=== PATIENT | female | born 1955 | race Caucasian/White ===

== ENCOUNTER 2024-04-06 08:27 | Outpatient (RCR) | payer OTHER, SELFPAY | END 2024-04-06 23:59 | disposition home or self-care (01) | LOC: RPT 08:27 | PROVIDERS: ATTENDING PHYSICIAN Family Medicine Sports Medicine; FAMILY PHYSICIAN Nurse Practitioner Family | DX: M76.32 Iliotibial band syndrome, left leg (principal); Z73.6 Limitation of activities due to disability | CPT/HCPCS: 97110; 97162 ==

== ENCOUNTER → 2024-04-22 12:21 | Outpatient (REF) | payer OTHER, SELFPAY | LOC: WDC 12:21 | PROVIDERS: ATTENDING PHYSICIAN Physician Assistant Medical; FAMILY PHYSICIAN Nurse Practitioner Family | DX: Z12.31 Encounter for screening mammogram for malignant neoplasm of breast (principal) | CPT/HCPCS: 77063; 77067 ==

== ENCOUNTER 2024-05-02 14:01 | Outpatient (RCR) | payer OTHER, SELFPAY | END 2024-05-02 23:59 | disposition home or self-care (01) | LOC: RPT 14:01 | PROVIDERS: ATTENDING PHYSICIAN Family Medicine Sports Medicine; FAMILY PHYSICIAN Nurse Practitioner Family | DX: M76.32 Iliotibial band syndrome, left leg (principal); Z73.6 Limitation of activities due to disability | CPT/HCPCS: 97110; 97140; 97530 ==

== ENCOUNTER 2024-06-09 13:09 | Outpatient (RCR) | payer OTHER, SELFPAY | END 2024-06-09 23:59 | disposition home or self-care (01) | LOC: RPT 13:09 | PROVIDERS: ATTENDING PHYSICIAN Family Medicine Sports Medicine; FAMILY PHYSICIAN Nurse Practitioner Family | DX: M76.32 Iliotibial band syndrome, left leg (principal); Z73.6 Limitation of activities due to disability; M62.81 Muscle weakness (generalized) | CPT/HCPCS: 97110; 97530 ==

== ENCOUNTER 2024-06-16 13:05 | Outpatient (RCR) | payer OTHER, SELFPAY | END 2024-06-20 06:24 | disposition home or self-care (01) | LOC: RPT 13:05 | PROVIDERS: ATTENDING PHYSICIAN Family Medicine Sports Medicine; FAMILY PHYSICIAN Nurse Practitioner Family | DX: M76.32 Iliotibial band syndrome, left leg (principal); Z73.6 Limitation of activities due to disability; M62.81 Muscle weakness (generalized) | CPT/HCPCS: 97110 ==

== ENCOUNTER → 2024-07-04 09:40 | Outpatient (REF) | payer OTHER, SELFPAY ==
--- NOTE | 2024-06-08 11:01 | PN.DIAED02 ---
Referral
DSME Class Series Code: [id number]
Referred For: Diabetes Self-Management Training, Medical Nutrition Therapy, Self-Blood Glucose Monitoring, Long-Term Complication Instruction, Accute Complication Instruction, Continuous Glucose Monitoring, Medication management, Insulin
Instruction, Care Coordination, Disease Management
PHI Release Authorization Form Signed: Yes
Patient Problems:
Current Active Problems
Problem Status Onset
Type 2 diabetes mellitus with other specified complication
Demographic
(1) Type 2 diabetes mellitus with other specified complication
Status: Acute Code(s): E11.69 - Type 2 diabetes mellitus with other specified complication
Patient's primary language-: Yi
Education: Advanced college degree
Occupation: Retired
- Social
Primary Support Person: Self
Primary Care Takers: Self
Living Arrangements: Self & spouse
- Learning Methods
Preferred Method: Reading, Hands-on demonstration
Barriers to Learning: None
Glycemic Control
- Blood Glucose Monitoring Assessment
Date: 09/10/23 (FBS: 130 mg/dL)
Blood glucose monitoring at home: Yes (freestyle marcello 2)
- Ketone Monitoring Assessment
Patient monitoring ketone: No
- Hyperglycemia Assessment
Experiences Hyperglycemia: No
- Hypoglycemia Assessment
Patient carries glucose source: Yes
Patient experiences hypoglycemia: Yes
Frequency: 1-3x per week
Treatment: juice
Time: Other (after exercise (physical therapy))
Patient has required treatment by others: No
History of Hypoglycemia Unawareness: No
- Blood Glucose Monitoring Results
Source: Other (freestyle marcello: average 120 mg to 130 mg/dL)
- Hemoglobin A1c
Date: 09/10/23
A1C Percentage (%): 7.1
Medical History of Diabetes
Family Diabetes History: Grandmother, Grandfather
Previous Diabetes Education: Yes
How long ago?: > 10 years ago
Previous visit with Dietitian: Yes (IBD)
How long ago?: 1-5 years ago
Complications/Comorbidity/Specialist: Hyperlipidemia (pravastatin daily)
Current Home Medication
- Insulin Management
Patient adjusts own insulin dosages: No (12 units TID with meals)
Patient has access to glucagon: No
- Insulin Types
Novolog
Insulin Injection Site: Abdomen, Thigh, Rotates
Administration Type: FlexPen
Measures
- Anthropometrics
Height: 5 ft 2 in
Actual Weight: 152 lb
- Blood Pressure / Pulse
Blood pressure: 135/90
Pulse: 110
- Diabetes Management
Medical Management for Diabetes: Complete physical exam (08/24/23), Dental exam (04/24/24), Dilated eye exam (01/24/24), Foot exam (10/18/22)
Self-Care
- Tobacco Usage
Do you now, or have you ever smoked?: Quit more than 1 year ago
- Alcohol & Drugs Usage
Drinks Alcohol: Yes
Amount/day: Social Occasions
- Meals & Dining
Meals & Dining: Patient skips meals: No, Food Intolerance / Allergy: Yes (IBD--high fiber vegetables, salads), Cultural / Cheondoism Dietary Needs: No
Primary Food Music Specialist: Self
- Physical Activity
Physical Limitation: No (recovering from hip injury able to restart activity)
Patient participates in physical Activity: Yes
Activity Types: walking, Other (physical therapy )
- Self Foot-Care
Foot Problems: None
- Patient-Self Assessment
Diabetes Knowledge: Good
Feelings About Diabetes: Sadness / Depression
Importance of Health: Extremely
Stress Level: Low
Diabetes Interferes With:: Sports/exercise
Barriers to Diabetes Management: Nothing
Depression Survey Score: 5
- Diabetes Identification
Carries Diabetes Identification: No (provided information to obtain Id)
Diabetes Identification Information Provided: Yes
Care Plan
- Education Needs
Patient Education Needs: Diabetes disease process, Chronic complications, Acute complications, Medication, Monitoring, Physical activity, Psychosocial Adjustment, Nutritional management, Goal setting & problem solving
Recommended Diabetes Training Program based on assessment: Outpatient Diabetes Education Program
- Plan of Care
Plan of Care:
Gayla had previously attended the [facility] DSME program in 1998. 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 She is currently on Metformin 1000 mg BID, Novolog Flexpen; 12 units TID pre meals and Mounjaro 2.5
mg. Thursday06/03/24 was her last Mounjaro dose as she cannot afford the cost of the next supply. I recommended she contact the MD office to discuss alternative options or ask for assistance. Gayla wears the Freestyle marcello 2 sensor and stated her
glucose ranges from 120 to 130 mg/dL. We discussed changing to the Freestyle 3 marcello to avoid having to scan her sensor to obtain the reading. Gayla is in physical therapy once a week for an injury to her hip. We discussed the importance of
physical activity and she is now able to increase her activity and identified it as one of her goals.
--- NOTE | 2024-06-08 11:30 | PN.DIAED04 ---
Education Record
- Education Record
Class Attended: Other (Initial DSME assessment)
DSME Class Series Code: [id number]
Instructor: Nurse Practitioner (ROGER Lang)
Pre-Program Knowledge: Needs review / Assistance
Pre-Test Score (%): 73
Goals
- Goal 1
Being Active: Exercise 30 minutes-5 times per week
Goals To Be Evaluated: Exercise 30 mins-5x/week
- Goal 2
Healthy Eating: Patient will be able to plan a meal, Make better food choices, Follow meal plan, Reduce portion sizes
Goals To Be Evaluated: Be able to plan a meal. Make better food choices. Follow meal plan. Reduce portion sizes
- Goal 3
Monitoring: Take blood sugar in the prescribed pattern (monitor for glucose trends and patterns using marcello sensor), Other
Goals To Be Evaluated: Test BG-prescribed times. Other
--- NOTE | 2024-07-06 13:01 | PN.DIAED14 ---
This is to notify you that your patient with diabetes, KAYLA JOSEPH ( 1955), has enrolled in our diabetes self-management classes that are being held at [facility].
These classes will include an introduction to diabetes, diet, medication, exercise and prevention of complications. At the end of our class series, you will receive a report of your patient's participation and progress for your records.
Please contact me at the Diabetes Center, , if there is any particular information regarding your patient that might be helpful to me.
Sincerely,
Real DURAN-,[facility]
--- NOTE | 2024-07-06 13:01 | PN.DIAED18 ---
Depression is associated with poor diabetes self-management and perceived inability to control diabetes.
After careful consideration and multiple layers of input, the [facility]'s outpatient diabetes education program has implemented a depression screening tool. The tool is the PHQ-9 Quick Depression Assessment.
Each patient who attends the outpatient diabetes education class responds to 9 questions before the first class starts. At the completion of the 5 classes, each patient again responds to the same 9 questions. In theory, after completing the program
the hope is that the patient will feel somewhat more capable of diabetes self-management.
Your patient, KAYLA JOSEPH ( 1955), scored '5' on the pre-depression screening, which indicated mild depression; Your patient did not complete the last class so we have no post-depression score.
Enclosed please find a copy of the depression screening.
If you require any additional information, please do not hesitate to contact me at [phone].
Sincerely,
Real DURAN-TRACY,[facility]
--- NOTE | 2024-07-06 13:10 | PN.DIAED04 ---
Education Record
- Education Record
Class Attended: Class 1
DSME Class Series Code: [id number]
Instructor: Nurse Practitioner (ROGER Lang)
Class Curriculum:
Outpatient Diabetes Education Program:
Class 1 (120 minutes)
Describe the diabetes disease process and treatment options
Diabetes management
Develop personal strategies to promote health and behavior change
Integrate psychosocial adjustment for daily living
Monitor blood glucose and other parameters. Interpret and use the results for self-management decision making
Prevent, detect, and treat acute complications
Class Length (mins): 120
Post-Class 1 Test Score (%): 94
== END ==
LOC: DES 09:40
PROVIDERS: ATTENDING PHYSICIAN Physician Assistant
DX: E11.69 Type 2 diabetes mellitus with other specified complication (principal)
CPT/HCPCS: 99078

== ENCOUNTER → 2024-07-11 09:06 | Outpatient (REF) | payer OTHER, SELFPAY ==
--- NOTE | 2024-07-12 15:39 | PN.DIAED04 ---
Education Record
- Education Record
Class Attended: Class 2
DSME Class Series Code: [id number]
Instructor: Registered Dietitian (Danette Cortez, RD, LDN, CDE)
Class Curriculum:
Outpatient Diabetes Education Program:
Class 2 (120 minutes)
Incorporate nutritional management into lifestyle
Understanding nutritional value
Understanding carbohydrate counting
Class Length (mins): 120
== END ==
LOC: DES 09:06
PROVIDERS: ATTENDING PHYSICIAN Physician Assistant
DX: E11.69 Type 2 diabetes mellitus with other specified complication (principal)
CPT/HCPCS: 99078

== ENCOUNTER → 2024-07-25 07:59 | Outpatient (REF) | payer OTHER, SELFPAY ==
--- NOTE | 2024-07-26 08:28 | PN.DIAED04 ---
Education Record
- Education Record
Class Attended: Class 4
DSME Class Series Code: [id number]
Instructor: Nurse Practitioner (ROGER Lang)
Class Curriculum:
Outpatient Diabetes Education Program:
Class 4 (120 minutes)
Develop personal strategies to promote health and behavior change
Incorporate physical activity into lifestyle
Utilize medications safety for maximum therapeutic effectiveness
Understand different medication/insulin mechanism of action
Preparing for travel
Class Length (mins): 120
Post-Class 4 Test Score (%): 93
== END ==
LOC: DES 07:59
PROVIDERS: ATTENDING PHYSICIAN Physician Assistant
DX: E11.69 Type 2 diabetes mellitus with other specified complication (principal)
CPT/HCPCS: 99078

== ENCOUNTER → 2024-08-01 09:32 | Outpatient (REF) | payer OTHER, SELFPAY ==
--- NOTE | 2024-08-03 15:03 | PN.DIAED04 ---
Education Record
- Education Record
Class Attended: Class 5
DSME Class Series Code: [id number]
Instructor: Nurse Practitioner (ROGER Lang)
Class Curriculum:
Outpatient Diabetes Education Program:
Class 5 (120 minutes)
Prevent, detect, and treat acute complications
Prevent, detect, and treat chronic complications through risk reduction
Develop personal strategies to address psychosocial issues and concerns
Development of diabetes self-management support plan
Letter to physician with DSMS plan attached sent
Class Length (mins): 120
Post-Program Knowledge: Demonstrates competency
Post-Test Score (%): 78
Post-Program Assessment
- Post-Program Assessment
Actual Weight: 152 lb
Blood pressure: 146/87
Post-Program Depression Survey Score: 3
Reviewing Previous Goals?: Yes
Pre-Program Depression Survey Score: 5
- Goals 1 Evaluation
Goals To Be Evaluated: Exercise 30 mins-5x/week
- Goals 2 Evaluation
Goals To Be Evaluated: Be able to plan a meal. Make better food choices. Follow meal plan. Reduce portion sizes
- Goals 3 Evaluation
Goals To Be Evaluated: Test BG-prescribed times. Other
== END ==
LOC: DES 09:32
PROVIDERS: ATTENDING PHYSICIAN Physician Assistant
DX: E11.69 Type 2 diabetes mellitus with other specified complication (principal)
CPT/HCPCS: 99078

== ENCOUNTER → 2024-08-29 08:14 | Outpatient (REF) | payer OTHER, SELFPAY ==
--- NOTE | 2024-08-30 08:26 | PN.DIAED04 ---
Education Record
- Education Record
Class Attended: Class 3
DSME Class Series Code: [id number]
Instructor: Registered Dietitian (Danette Cortez, RD, LDN, CDE)
Class Curriculum:
Outpatient Diabetes Education Program:
Class 3 (120 minutes)
Incorporate nutritional management into lifestyle
Class Length (mins): 120
Post-Class 2 & 3 Test Score (%): 94
--- NOTE | 2024-08-30 08:27 | PN.DIAED16 ---
This is to notify you that your patient with diabetes, KAYLA JOSEPH ( 1955), has attended the entire series of Diabetes Self-Management Education Classes.
Class 1 (120 minutes): Diabetes Overview - monitoring, stress/psychosocial adjustment, support, goal setting
Class 2 (120 minutes): Meal Planning - serving sizes, menu plans
Class 3 (120 minutes): Introduction to Carbohydrate Counting, Analyzing Food Labels
Class 4 (120 minutes): Medication, Exercise and Activity
Class 5 (120 minutes): Sick Day Management, Strategies to Reduce Complications, Problem Solving, Resources
The following behavioral goals were identified:
Exercise 30 mins-5x/week
Be able to plan a meal
Make better food choices
Follow meal plan
Reduce portion sizes
Test BG-prescribed times
Other
A follow-up call will be made within three to six months to evaluate attainment of these goals and to check post-program Hemoglobin A1c and overall progress. All class participants are encouraged to contact me if I can be any further assistance in
learning how to manage their diabetes.
Sincerely,
Real DURAN-TRACY,[facility]
== END ==
LOC: DES 08:14
PROVIDERS: ATTENDING PHYSICIAN Physician Assistant
DX: E11.69 Type 2 diabetes mellitus with other specified complication (principal)
CPT/HCPCS: 99078